=== PATIENT | male | born 1970 | race Caucasian/White ===

== ENCOUNTER 2018-11-27 18:28 | Inpatient (IN) | payer OTHER ==
[~2018-11-27] VITALS: Ht 182.9 cm; Wt 110.2 kg
[~2018-11-27 18:28] MED LIST: ACYCLOVIR800 MG PO; APAP/HYDROCODON1 T13 PO; ASPIR 8181 MG PO; ASPIR LOW81 MG PO; BENAZEPRIL HYDR40 M1 PO; CARVEDILOL25 M1 PO; CIPRO250 MG PO; COZ50 PO; ERGOCALCIFER50000 IU PO; FENOFIBRATE54 M1 PO; FLEXERIL10 MG PO; GABAPENTIN300 M2 PO; GOOD SENSE ASPI81 M3 PO; HUMALIN SC; HUMALOG100 U/ML SC; HUMI SC; HUMULIN R100 U/1 M1 IV; HYDROCHLOROTHIA25 MG PO; KAYEN PR; LAC30L PO; LEVEMIR100 U/M1 SQ; LIDOCAINE AND P1 CRE TOP; LIPI10 PO; LOPRESSOR100 MG PO; MELOXICAM7.5 M1 PO; METOPROLOL SUCC25 M1 PO; NEU300 PO; NOR5 PO; REG5 PO; RENA-VITE1 TAB PO; RENVELA800 M1 PO; UNK HTN MED; ZES20 PO
[2018-11-27 18:51] VITALS: Ht 182.9 cm; Wt 110.2 kg
[2018-11-27] MEDS ORDERED: NIFEDIPINE60 MG PO ×2 (19:06→19:07)
[2018-11-27] MEDS ORDERED: FUROSEMIDE80 MG PO (19:08)
[2018-11-27 19:26] LABS: BASOPHIL % 0.3 % (0-2); PLATELET COUNT 228 x10^3mcL (130-400); RED CELL DISTRIBUTION WIDTH 14.1 % (11.5-14.5)
[2018-11-27 19:48] LABS: ALBUMIN 3.6 g/dL (3.4-5.0); BILIRUBIN TOTAL 0.4 mg/dL (0.20-1.00); CARBON DIOXIDE 32.4 mmol/L (21-32); POTASSIUM SERUM 4.3 mmol/L (3.5-5.1); TOTAL PROTEIN, SERUM 8.2 g/dL (6.4-8.2)
[2018-11-27 19:56] LABS: CREATININE SERUM 7.7 mg/dL (0.7-1.3)
[2018-11-28 00:03] VITALS: BP 155/77
[2018-11-28 01:21] LABS: MAGNESIUM 1.8 mg/dL (1.8-2.4); PHOSPHOROUS 4.9 mg/dL (2.5-4.9)
[2018-11-28 01:34] LABS: CHOLESTEROL/HDL RATIO 4.6
[2018-11-28 05:07] VITALS: BP 165/73
[2018-11-28 06:42] LABS: CALCIUM 8.9 mg/dL (8.5-10.1); CARBON DIOXIDE 29.7 mmol/L (21-32); MAGNESIUM 1.8 mg/dL (1.8-2.4); PHOSPHOROUS 6.2 mg/dL (2.5-4.9); POTASSIUM SERUM 4.8 mmol/L (3.5-5.1)
[2018-11-28 06:50] LABS: BASOPHIL % 0.7 % (0-2); PLATELET COUNT 190 x10^3mcL (130-400); RED CELL DISTRIBUTION WIDTH 14.4 % (11.5-14.5)
[2018-11-28 07:06] LABS: CREATININE SERUM 8.5 mg/dL (0.7-1.3)
[2018-11-28 08:17] VITALS: BP 155/63
[2018-11-28 11:58] VITALS: BP 165/84
[2018-11-28 16:28] VITALS: BP 144/66
[2018-11-28 19:30] VITALS: BP 148/69
[2018-11-29 03:16] VITALS: BP 107/54
[2018-11-29 06:00] VITALS: BP 107/54
[2018-11-29 06:17] LABS: CALCIUM 8.7 mg/dL (8.5-10.1); CARBON DIOXIDE 28.2 mmol/L (21-32); PHOSPHOROUS 6.9 mg/dL (2.5-4.9)
[2018-11-29 06:20] LABS: POTASSIUM SERUM 5.6 mmol/L (3.5-5.1)
[2018-11-29 06:21] LABS: CREATININE SERUM 11.9 mg/dL (0.7-1.3)
[2018-11-29 06:37] LABS: BASOPHIL % 0.3 % (0-2); PLATELET COUNT 196 x10^3mcL (130-400)
[2018-11-29 08:14] VITALS: BP 118/61
[2018-11-29 12:17] VITALS: BP 130/54
[2018-11-29 16:44] VITALS: BP 110/59
[2018-11-29 20:32] VITALS: BP 146/68
[2018-11-30 05:16] VITALS: BP 123/64
[2018-11-30 06:28] LABS: BASOPHIL % 0.7 % (0-2); PLATELET COUNT 185 x10^3mcL (130-400)
[2018-11-30 06:43] LABS: CALCIUM 8.5 mg/dL (8.5-10.1); CARBON DIOXIDE 29.5 mmol/L (21-32); MAGNESIUM 1.9 mg/dL (1.8-2.4); PHOSPHOROUS 6.5 mg/dL (2.5-4.9); POTASSIUM SERUM 4.3 mmol/L (3.5-5.1)
[2018-11-30 06:51] LABS: CREATININE SERUM 9.5 mg/dL (0.7-1.3)
[2018-11-30 07:49] VITALS: BP 118/60
[2018-11-30 11:51] VITALS: BP 120/61
[2018-11-30 16:42] VITALS: BP 138/65
[2018-11-30 20:07] VITALS: BP 124/65
[2018-12-01 04:19] VITALS: BP 125/69
[2018-12-01 06:56] LABS: BASOPHIL % 0.6 % (0-2); PLATELET COUNT 222 x10^3mcL (130-400); RED CELL DISTRIBUTION WIDTH 14.1 % (11.5-14.5)
[2018-12-01 07:11] LABS: CALCIUM 9.7 mg/dL (8.5-10.1); CARBON DIOXIDE 27.3 mmol/L (21-32); MAGNESIUM 2.2 mg/dL (1.8-2.4); PHOSPHOROUS 7.9 mg/dL (2.5-4.9); POTASSIUM SERUM 4.9 mmol/L (3.5-5.1)
[2018-12-01 07:28] LABS: CREATININE SERUM 12.4 mg/dL (0.7-1.3)
[2018-12-01 09:11] VITALS: BP 126/61
[2018-12-01 16:05] VITALS: BP 143/76
[2018-12-01 17:36] VITALS: BP 134/68
== END 2018-12-01 20:00 | disposition home or self-care (01) | DRG 637 ==
LOC: ED 18:28 → MU 22:04
PROVIDERS: Emergency Medicine; Internal Medicine; ADMIT Internal Medicine
PROC: 0DBN8ZZ Excision of Sigmoid Colon, Via Natural or Artificial Opening Endoscopic (ICD-10-PCS; 2018-12-01)
PROC: 0DBF8ZZ Excision of Right Large Intestine, Via Natural or Artificial Opening Endoscopic (ICD-10-PCS; 2018-12-01)
PROC: 0DBM8ZZ Excision of Descending Colon, Via Natural or Artificial Opening Endoscopic (ICD-10-PCS; 2018-12-01)
PROC: 0DBH8ZZ Excision of Cecum, Via Natural or Artificial Opening Endoscopic (ICD-10-PCS; 2018-12-01)
PROC: 0DBK8ZZ Excision of Ascending Colon, Via Natural or Artificial Opening Endoscopic (ICD-10-PCS; principal; 2018-12-01 12:00)
PROC: 0DBL8ZZ Excision of Transverse Colon, Via Natural or Artificial Opening Endoscopic (ICD-10-PCS; 2018-12-01 12:00)
DX: E11.649 Type 2 diabetes mellitus with hypoglycemia without coma (principal); G93.41 Metabolic encephalopathy; I12.0 Hypertensive chronic kidney disease with stage 5 chronic kidney disease or end stage renal disease; E11.22 Type 2 diabetes mellitus with diabetic chronic kidney disease; N18.6 End stage renal disease; N17.0 Acute kidney failure with tubular necrosis; E11.65 Type 2 diabetes mellitus with hyperglycemia; K63.5 Polyp of colon; K57.30 Diverticulosis of large intestine without perforation or abscess without bleeding; E78.5 Hyperlipidemia, unspecified; Z99.2 Dependence on renal dialysis; Z68.33 Body mass index [BMI] 33.0-33.9, adult; Z79.84 Long term (current) use of oral hypoglycemic drugs
CPT/HCPCS: 45378; 82962; 83880; 87046; 87046-59; J0694; J1200; J1610; J1815; J2250; J2270; J2310; J2405; J3010; J3490; J7030; J7050; J7060; Q0092

== ENCOUNTER 2018-12-21 12:22 | Emergency (ER) | payer OTHER ==
[~2018-12-21] VITALS: Ht 190.5 cm; Wt 117.9 kg
[~2018-12-21 12:22] MED LIST changes: +FUROSEMIDE80 MG PO; +NIFEDIPINE60 MG PO
[2018-12-21 12:31] VITALS: Ht 190.5 cm; Wt 117.9 kg
[2018-12-21 13:32] LABS: BASOPHIL % 0.8 % (0-2); PLATELET COUNT 208 x10^3mcL (130-400)
[2018-12-21 13:53] LABS: BILIRUBIN TOTAL 0.5 mg/dL (0.20-1.00); CALCIUM 9.5 mg/dL (8.5-10.1); CARBON DIOXIDE 32.1 mmol/L (21-32); POTASSIUM SERUM 4.2 mmol/L (3.5-5.1)
[2018-12-21 14:09] LABS: RED CELL DISTRIBUTION WIDTH 15.1 % (11.5-14.5)
[2018-12-21 14:15] LABS: CREATININE SERUM 9.3 mg/dL (0.7-1.3)
[2018-12-21 18:36] VITALS: BP 146/75
== END 2018-12-21 18:36 | disposition short-term general hospital (02) ==
LOC: ED 12:22
PROVIDERS: Emergency Medicine
DX: I21.4 Non-ST elevation (NSTEMI) myocardial infarction (principal); R55 Syncope and collapse; R07.89 Other chest pain; E11.22 Type 2 diabetes mellitus with diabetic chronic kidney disease; I12.0 Hypertensive chronic kidney disease with stage 5 chronic kidney disease or end stage renal disease; N18.6 End stage renal disease; E78.00 Pure hypercholesterolemia, unspecified; Z88.6 Allergy status to analgesic agent; Z99.2 Dependence on renal dialysis; Z88.5 Allergy status to narcotic agent
CPT/HCPCS: 36415; 82962; Q0092